=== PATIENT | female | born 1975 | race Asian ===

== ENCOUNTER 2019-09-29 12:20 | Emergency (ER) | payer OTHER, SELFPAY ==
[2019-09-29 12:43] VITALS: BP 131/85; PULSE 101; RESP 20; TEMP 37; O2SAT 98; BMI 22.8
--- NOTE | 2019-09-29 13:04 | USCV_ITS ---
Anita Bedoya Age: 44 Gender: F : 1975 Exam Date: 09/29/2019 13:04 Ordering Phys: Ana Yu Technologist: Veda Woodruff [place] [facility] [place]: Calf pain HISTORY: Left lower extremity pain. PROCEDURES: Comparison: none available. Venous duplex imaging was performed in only the left lower extremity. The following venous structures were evaluated: common femoral vein, profunda vein, proximal portion of the greater saphenous vein, superficial femoral vein, and the popliteal vein. In addition, the posterior tibial and peroneal trunk were evaluated. Serial compression, augmentation maneuvers, and spectral Doppler flow evaluation were performed. FINDINGS: No evidence of DVT seen in any vessel visualized at this time. CONCLUSIONS Negative left lower extremity venous Doppler ultrasound. Negative for Webb's cyst. Dr. Marian Whitehead MD (Electronically Signed) Final Date: 29 September 2019 13:36 S
--- NOTE | 2019-09-29 14:11 | PC.NURSE ---
Report recd from DUNG Lopez.
[2019-09-29 14:26] VITALS: BP 138/90; PULSE 90; RESP 14; TEMP 36.8; O2SAT 100
--- NOTE | 2019-09-29 14:49 | ED_ITS ---
HPI - Extremity Problem General: Chief complaint: Extremity Problem,Nontraumatic Stated complaint: LEFT LEG PAIN Time Seen by Provider: 09/29/19 12:53 Source: patient Mode of arrival: ambulatory Limitations: no limitations History of Present Illness: HPI Narrative: Patient is a 44-year-old female who presents to ED today with complaints of left lower extremity pain that began y esterday while seated at work; patient states pain seems to be worse with ambulation and palpation; she has not noticed any redness, swelling, numbness, tingling, temperature changes to the extremity; reports pain seems to be in the posterior aspect of her knee and radiating down into her calf Complaint: extremity pain Onset (ago): day(s) (yesterday ) Pain Consistency: constant Location: left Radiation: distal Relieving factors: immobilization Exacerbating factors: range of motion, weight bearing and walking Associated symptoms: Reports no associated symptoms; Deny chest pain or fever(s) Review of Systems Const: Denies: fever or chills Card: Denies: chest pain, palpitations, irregular heart rhythm, edema, lightheadedness, syncope or pre-syncope Resp: Denies: shortness of breath, pain on inspiration or coughing up blood Musc: Reports: extremity pain and joint pain; Denies: neck pain, back pain, extremity swelling, joint swelling, redness, joint warmth or muscle cramps Neuro: Denies: numbness in extremities, weakness in extremities or changes in sensation PFSH ED PFSH: Statuses (acute, chronic, etc) shown below reflect problem list status as previously entered and may not be historically accurate Social History Smoking and tobacco status: current every day smoker Female Reproductive History: Date of last menstrual period: 09/05/19 Physical Exam Const: COMMON NORMALS: no apparent distress, average body habitus, oriented x3, no limitations, healthy appearing, alert and well nourished Resp: COMMON NORMALS: normal respiratory effort and clear to auscultation bilaterally AUSCULTATION: clear to auscultation bilaterally Cardio: COMMON NORMALS: regular rate and regular rhythm RATE: regular rate RHYTHM: regular rhythm Extremity: OTHER: pt has pain to palpation of L posterior/lateral knee; pain in calf with foot flexion Neuro: COMMON NORMALS: oriented x3 SENSORIUM/ORIENTATION: Yes alert Skin: COMMON NORMALS: no rashes or lesions noted NARRATIVE SKIN EXAM: no redness, warmth, rash/lesions noted to LE GENERAL SKIN EXAM: no rashes or lesions noted Course Vital Signs: Vital signs: Vital Signs Temperature 98.3 F 09/29/19 14:26 Pulse Rate 90 09/29/19 14:26 Respiratory Rate 14 09/29/19 14:26 Blood Pressure 138/90 09/29/19 14:26 Pulse Oximetry 100 09/29/19 14:26 MDM - Extremity (Nontraumatic) Imaging Data^: US: Radiologist's impression: [address] [place] [address] Ultrasound Report Signed Patient: Hakeem Bedoya #: [id number] : 1975Acct#:[id number] Age/Sex: 44 / FADM Date: 09/29/19 [facility] Attending Dr: Ordering Provider/Ordering MD: Ana Yu Date of Service: 09/29/19 Procedure(s): CV venous duplex [facility] [id number] Accession Number(s): [id number] Report Number: [id number] Anita Bedoya Age: 44 Gender: F : 1975 Exam Date: 09/29/2019 13:04 Ordering Phys: Ana Yu Technologist: Veda Woodruff Exam Location: [facility] [place] Indication: Calf pain HISTORY: Left lower extremity pain. PROCEDURES: Comparison: none available. Venous duplex imaging was performed in only the left lower extremity. The following venous structures were evaluated: common femoral vein, profunda vein, proximal portion of the greater saphenous vein, superficial femoral vein, and the popliteal vein. In addition, the posterior tibial and peroneal trunk were evaluated. Serial compression, augmentation maneuvers, and spectral Doppler flow evaluation were performed. FINDINGS: No evidence of DVT seen in any vessel visualized at this time. CONCLUSIONS Negative left lower extremity venous Doppler ultrasound. Negative for Webb's cyst. Dr. Marian Whitehead MD (Electronically Signed) Final Date: 29 September 2019 13:36 S Discharge Plan Discharge Patient Disposition: Home, Self-Care Clinical Impression: Acute pain of left knee Condition: Stable Prescriptions: No Action venlafaxine RF: 0 sumatriptan [id number] RF: 0 Seroquel 50 mg Tablet RF: 0 Discharge Orders: Discharge Order (Routine); Ordered 09/29/19 Ordered By: nAa Yu Referrals: Adore Jones APN [Primary Care Provider] - Discharge Activity: Resume usual activity Patient Instructions: Knee Pain (ED) Activity Restrictions/Additional Instructions: Follow up with primary care in a week for continued pain. Discharge Date/Time: 09/29/19 14:27 Coding Level of Care Code ED Residential Insurance Inspector for Chg Fwd Exam Problem Focused
== END 2019-09-29 14:27 | disposition home or self-care (01) ==
PROVIDERS: Emergency Provider Physician Assistant; Family Provider Nurse Practitioner; PCP Nurse Practitioner
DX: M25.562 Pain in left knee (principal); F17.210 Nicotine dependence, cigarettes, uncomplicated
CPT/HCPCS: 93971; 99281

== ENCOUNTER 2021-06-20 08:58 | Outpatient (CLI) | payer OTHER, SELFPAY ==
[2021-06-20 10:45] LABS: Basophils # 0.1 10^3/uL (0.0-0.1); Basophils % 0.7 %; Eosinophils # 0.4 10^3/uL (0.0-0.8); Eosinophils % 3.1 %; Hematocrit 46.1 % (37.0-47.0); Hemoglobin 14.9 g/dL (11.5-15.3); Lymphocytes # 3.4 10^3/uL (0.8-4.8); Lymphocytes % 24.3 %; Mean Corpuscular HGB Conc 32.3 g/dL (30.0-36.0); Mean Corpuscular Volume 92.9 fl (81-99); Mean Platelet Volume 9.6 fL (7.4-10.4); Monocytes # 0.9 10^3/uL (0.2-0.9); Monocytes % 6.4 %; Neutrophils # 9.07 10^3/uL (1.8-7.7); Neutrophils % 64.8 %; Nucleated Red Blood Cells % 0 %; Platelet Count 479 10^3/cmm (130-400); Red Blood Count 4.96 10^6/uL (4.1-5.3); Red Cell Distribution Width 14.5 % (12.1-15.1)
[2021-06-20 11:27] LABS: Alanine Aminotransferase 36 U/L (0-33); Albumin Level 4.2 g/dL (3.5-5.2); Alkaline Phosphatase 82 IU/L (35-105); Anion Gap 15.2 (5-19); Aspartate Amino Transferase 21 U/L (0-32); Blood Urea Nitrogen 10 mg/dL (6-20); Calcium 9.1 mg/dL (8.5-10.5); Carbon Dioxide 22 mmol/L (22-29); Chloride 101 mmol/L (98-107); Globulin 3.4 g/dL (1.3-4.6); Glomerular Filtration Rate 90.9 mL/min (90-130); Glucose 96 mg/dL (65-115); Lactate Dehydrogenase 153 U/L (135-214); Osmolality Calculated 277 mOsm/kg (285-295); Potassium 4.2 mmol/L (3.5-5.1); Sodium 134 mmol/L (136-145); Thyroid Stimulating Hormone 1.81 uIU/mL (0.27-4.20); Total Bilirubin 0.3 mg/dL (0.15-1.2); Total Protein 7.6 g/dL (6.6-8.7); Vitamin B12 249 pg/mL (232-1245)
[2021-06-20 15:04] LABS: Slide Review Slide Review Perform
[2021-06-20 15:08] LABS: LAB Peripheral Smear Sent for Review
--- NOTE | 2021-06-21 08:46 | ONC CON_ITS ---
Dr. Jones New Patient Note Patient: Anita Varghese Unit #: [id number]: 1975 Dicatated By: Esteban Jones M.D.Date of Visit: Jun 20, 2021 Onc MED New Patient/Consult Referring Physician: Kae Colunga Chief Complaint: Leukocytosis. History of Present Illness: This is a 46-year-old woman with mild but persistent leukocytosis. This patient has a history of major depression. She also has chronic fatigue and she has a history of chronic migraine. She has been seeing Adore Jones for primary care. She has had a persistent leukocytosis dating back to at least January 2021 when her CBC showed a white blood cell count mildly elevated at 15,100. The differential at that time included 69% segs, 1% bands, 24% lymphocytes, 3% monocytes, 2% eosinophils, and 1% basophils. The hemoglobin was normal at 14.0 g with hematocrit 42%, and the red cell indices were normal. Platelet count was borderline high at 432,000. Similar findings were noted on a CBC from 03/21/2021 with white blood cell count 17,700, hemoglobin 13.6 g, and platelet count 400,000 and another CBC from 05/08/2021 with white blood cell count 17,800, hemoglobin 14.6 g, and platelet count 465,000. On review of her records in [facility], she had a prior CBC from 04/18/2019 which showed a similarly elevated white blood cell count at 17,700 with hemoglobin 13.3 g and platelet count slightly elevated at 436,000. Her other laboratories from January included comprehensive metabolic profile which was unremarkable except for slightly low albumin of 3.3 g/dL. Her TSH was slightly low at 0.676 ???IU/mL. She indicates that she had become profoundly lethargic in association with her depression, to the point that she was not working or involving herself in any other activities. Lately, though, she has been feeling a little better and she is starting to work again, though she still feels tired. Her ECOG score is 1. Her appetite is iffy . She had a significant weight gain in the range of 30 pounds over the past couple of years, but her weight recently has been stable. She has not had fever or night sweats. She had been having some hot flashes, but not recently. She has not had sinus symptoms, sore mouth, or sore throat. She has occasionally had pressure in her chest at night. She does not complain of shortness of breath or cough. She sometimes has nausea. She rarely has acid reflux. Bowel and bladder function have been okay, and her menstrual periods have been regular. She has occasional low back pain. She has migraine headaches which come and go. Lately they have not been as bad as they had been previously. She sometimes has dizziness. She has carpal tunnel symptoms bilaterally, which she has been managing with a brace at night. She has no other focal neurologic symptoms. Past Medical History: Her medical history includes anxiety, chronic fatigue, chronic insomnia, chronic migraine, depression, lumbar back pain, and panic attacks. Past Surgical History: Her only surgery was a tubal ligation. Medications: Abilify 1 Tablet (of 15 mg) Oral daily, ALPRAZolam 1 Tablet (of 0.5 mg) Oral b.i.d., buPROPion HCl ER (XL) 1 Tablet (of 300 mg) Tablet SR 24 HR Oral daily, Daily Vitamins 1 Tablet Oral daily, Propranolol HCl 1 Tablet (of 60 mg) Oral daily, traZODone HCl 1 Tablet (of 100 mg) Oral at bedtime, Venlafaxine HCl ER 1 Tablet (of 225 mg) Tablet SR 24 HR Oral daily Allergies: Penicillins Social History: Ms. Varghese is . She is employed by [employer] and she works at home. She has a history of smoking 1 pack of cigarettes daily for at least 20 years. She has just occasional alcohol use. Family History: Both parents are living, father at age 83 and mother at age 84. He has hypertension. She has hypertension and diabetes, and she also has been treated for breast cancer. She has 4 brothers, one of whom has hypertension. Review Of Symptoms: Constitutional - She has had significant fatigue, though it is starting to improve somewhat. Her appetite is iffy. She had significant weight gain over the past couple of years, in the range of 30 pounds. Her weight recently has been stable. She has not had fever or night sweats. She sometimes has hot flashes, but not recently. ECOG score is 1, Eyes - No change in vision, ENMT - No hearing loss or tinnitus. No sinus congestion/drainage. No mouth sores. No sore throat or difficulty swallowing, Hematologic/Lymphatic - No abnormal bruising or bleeding, Respiratory - No shortness of breath. No cough. No pleuritic pain or hemoptysis, Cardiovascular - She occasionally has pressure in her chest. It usually at night No palpitations, Gastrointestinal - She sometimes has nausea. She rarely has acid reflux. No diarrhea or constipation. No blood in the stool or black stools, Genitourinary (F) - No dysuria or hematuria. No urinary frequency. No urgency or incontinence. Her menstrual periods are regular, Musculoskeletal - She occasionally has low back pain, Integumentary - No skin rash or other skin changes, Neurologic - She has chronic migraine, though recently not as severe as it has been previously. She sometimes has dizziness. She has carpal tunnel symptoms bilaterally. She has no other focal neurologic symptoms, Psychiatric - She has history of major depression. She also has anxiety and panic attacks, and she has chronic insomnia. Vital Signs: Performed on Jun 20, 2021 09:41: 3, 0, 28.84, 1.60 sq.m, 59 in, 99 %, 90 /min, 18 /min, 133/87 mm(hg), 97.2 F (LOW), and 142.8 lbs (HIGH). Physical Examination: Constitutional - She appears to be in good general health, Eyes - Sclerae nonicteric. Conjunctivae clear, ENMT - No lesions noted in the oral cavity, Neck - No mass or thyromegaly, Hematologic/Lymphatic - No cervical, clavicular, or axillary adenopathy, Respiratory - Lungs are clear with good air movement bilaterally, Cardiovascular - Heart rhythm is regular. There is no murmur, gallop, or rub noted, Abdomen - Soft and non-tender. Liver and spleen are not enlarged. There is no abdominal mass or ascites noted and there is no inguinal adenopathy, Back/Spine - There is some mild tenderness in the lower back/lumbar area, Extremities - No edema. Pedal pulses are palpable bilaterally, Integumentary - No rashes. No suspicious skin lesions noted, Neurologic - No focal neurologic deficits noted. Problem List: 1. Mild but persistent leukocytosis and borderline high platelet count. Etiology is uncertain, but the findings appear today back to at least March 2019. 2. She has major depression. 3. History of anxiety and panic attacks. 4. Chronic fatigue. 5. Chronic migraine. Problems Addressed with this Encounter and Plan: Patient with mild but persistent leukocytosis and borderline high platelet count. Etiology is uncertain. However, as it dates back to at least March 2019 and it has not shown significant progression during that interval, it appears to be most likely reactive. As there is no obvious underlying cause for it, a myeloproliferative disorder still needs to be excluded. At this point I will repeat her CBC and CMP along with sed rate, CRP level, LDH level, and B12 level. I will check BCR/abl by FISH, and I will review the blood smear. In addition, I will repeat the TSH level, as it was slightly low. She will have further evaluation as indicated. Signed By: Esteban Jones M.D. <<Signature on File>>
[2021-06-21 14:08] LABS: Erythrocyte Sedimentation Rate 19 mm/hr (0-15)
[2021-06-23 22:48] LABS: P190 BCR ALB1 NOT DETECTED; P210 BCR ALB1 NOT DETECTED; Prior Results NG; Source BLOOD
== END 2021-06-20 08:59 | disposition home or self-care (01) ==
LOC: ONCMED 09:04
PROVIDERS: PCP Nurse Practitioner; Visit Provider Internal Medicine Medical Oncology
DX: D72.829 Elevated white blood cell count, unspecified (principal); F32.9 Major depressive disorder, single episode, unspecified; F41.9 Anxiety disorder, unspecified; F41.0 Panic disorder [episodic paroxysmal anxiety]; R53.82 Chronic fatigue, unspecified; G43.919 Migraine, unspecified, intractable, without status migrainosus; Z79.899 Other long term (current) drug therapy
CPT/HCPCS: 36415; 80053; 81206; 82607; 83615; 84443; 85025; 85651; 86141; 99205

== ENCOUNTER 2021-09-27 11:23 | Outpatient (CLI) | payer OTHER, SELFPAY ==
[2021-09-27 11:54] LABS: Basophils # 0.1 10^3/uL (0.0-0.1); Basophils % 0.7 %; Eosinophils # 0.6 10^3/uL (0.0-0.8); Eosinophils % 4.1 %; Hematocrit 44.4 % (37.0-47.0); Hemoglobin 14.7 g/dL (11.5-15.3); Lymphocytes # 3.3 10^3/uL (0.8-4.8); Lymphocytes % 22.1 %; Mean Corpuscular HGB Conc 33.1 g/dL (30.0-36.0); Mean Corpuscular Hemoglobin 30.3 pg (28.0-34.0); Mean Corpuscular Volume 91.5 fl (81-99); Mean Platelet Volume 9.1 fL (7.4-10.4); Monocytes # 0.9 10^3/uL (0.2-0.9); Monocytes % 6.2 %; Neutrophils # 10.05 10^3/uL (1.8-7.7); Neutrophils % 66.4 %; Nucleated Red Blood Cells % 0 %; Platelet Count 483 10^3/cmm (130-400); Red Blood Count 4.85 10^6/uL (4.1-5.3); Red Cell Distribution Width 14.5 % (12.1-15.1); White Blood Count 15.1 10^3/uL (4.0-10.0)
[2021-09-27 12:09] LABS: Erythrocyte Sedimentation Rate 41 mm/hr (0-15)
[2021-09-27 12:24] LABS: Alanine Aminotransferase 121 U/L (0-33); Alkaline Phosphatase 146 IU/L (35-105); Blood Urea Nitrogen 10 mg/dL (6-20); Calcium 9.1 mg/dL (8.5-10.5); Carbon Dioxide 19 mmol/L (22-29); Chloride 102 mmol/L (98-107); Globulin 3.1 g/dL (1.3-4.6); Glomerular Filtration Rate 90.9 mL/min (90-130); Glucose 90 mg/dL (65-115); Osmolality Calculated 281 mOsm/kg (285-295); Sodium 136 mmol/L (136-145); Total Bilirubin 0.2 mg/dL (0.15-1.2); Total Protein 7.1 g/dL (6.6-8.7)
[2021-09-27 12:25] LABS: Anion Gap 19.6 (5-19); Potassium 4.6 mmol/L (3.5-5.1)
[2021-09-27 12:26] LABS: Aspartate Amino Transferase 95 U/L (0-32); Lactate Dehydrogenase 273 U/L (135-214)
== END 2021-09-27 11:24 | disposition home or self-care (01) ==
PROVIDERS: PCP Nurse Practitioner; Visit Provider Internal Medicine Medical Oncology
DX: D72.829 Elevated white blood cell count, unspecified (principal)
CPT/HCPCS: 36415; 80053; 83615; 85025; 85651

== ENCOUNTER 2021-10-09 12:41 | Outpatient (CLI) | payer OTHER, SELFPAY | END 2021-10-09 12:42 | disposition home or self-care (01) | LOC: ONCMED 12:43 | PROVIDERS: PCP Nurse Practitioner; Visit Provider Nurse Practitioner Family | DX: D72.829 Elevated white blood cell count, unspecified (principal); D69.1 Qualitative platelet defects; F32.9 Major depressive disorder, single episode, unspecified; F41.9 Anxiety disorder, unspecified; F41.0 Panic disorder [episodic paroxysmal anxiety]; R53.82 Chronic fatigue, unspecified; G43.809 Other migraine, not intractable, without status migrainosus; Z79.899 Other long term (current) drug therapy | CPT/HCPCS: 99214 ==

== ENCOUNTER 2022-02-27 10:28 | Oncology outpatient (recurring) (ONCR) | payer OTHER, SELFPAY ==
[2022-02-27 11:16] LABS: Basophils # 0.1 10^3/uL (0.0-0.1); Basophils % 0.7 %; Eosinophils # 0.4 10^3/uL (0.0-0.8); Eosinophils % 2.5 %; Hematocrit 44.2 % (37.0-47.0); Hemoglobin 14.9 g/dL (11.5-15.3); Lymphocytes # 3.8 10^3/uL (0.8-4.8); Lymphocytes % 21.8 %; Mean Corpuscular HGB Conc 33.7 g/dL (30.0-36.0); Mean Corpuscular Volume 92.1 fl (81-99); Mean Platelet Volume 9.4 fL (7.4-10.4); Monocytes # 0.8 10^3/uL (0.2-0.9); Monocytes % 4.8 %; Neutrophils # 12.19 10^3/uL (1.8-7.7); Neutrophils % 69.7 %; Nucleated Red Blood Cells % 0 %; Platelet Count 467 10^3/cmm (130-400); Red Cell Distribution Width 13.4 % (12.1-15.1); White Blood Count 17.5 10^3/uL (4.0-10.0)
[2022-02-27 11:35] LABS: Alanine Aminotransferase 18 U/L (0-33); Albumin Level 4.4 g/dL (3.5-5.2); Alkaline Phosphatase 81 IU/L (35-105); Anion Gap 16.8 (5-19); Aspartate Amino Transferase 18 U/L (0-32); Blood Urea Nitrogen 12 mg/dL (6-20); Calcium 9.1 mg/dL (8.5-10.5); Carbon Dioxide 21 mmol/L (22-29); Chloride 102 mmol/L (98-107); Globulin 3.5 g/dL (1.3-4.6); Glomerular Filtration Rate 77.6 mL/min (90-130); Glucose 146 mg/dL (65-115); Lactate Dehydrogenase 143 U/L (135-214); Osmolality Calculated 284 mOsm/kg (285-295); Potassium 3.8 mmol/L (3.5-5.1); Sodium 136 mmol/L (136-145); Total Bilirubin 0.2 mg/dL (0.15-1.2); Total Protein 7.9 g/dL (6.6-8.7)
== END 2022-02-27 23:59 | disposition home or self-care (01) ==
LOC: ONCMED 10:29
PROVIDERS: Nurse Practitioner Family; PCP Nurse Practitioner; Referring Provider Nurse Practitioner; Visit Provider Internal Medicine Medical Oncology
DX: D72.829 Elevated white blood cell count, unspecified (principal)
CPT/HCPCS: 80053; 83615; 85025; G0463

== ENCOUNTER 2022-09-04 12:29 | Oncology outpatient (recurring) (ONCR) | payer OTHER, SELFPAY ==
[2022-09-04 14:25] LABS: Basophils # 0.1 10^3/uL (0.0-0.1); Basophils % 0.7 %; Eosinophils # 0.3 10^3/uL (0.0-0.8); Eosinophils % 2.1 %; Hematocrit 42.5 % (37.0-47.0); Lymphocytes # 4.3 10^3/uL (0.8-4.8); Lymphocytes % 28.5 %; Mean Corpuscular HGB Conc 32.9 g/dL (30.0-36.0); Mean Corpuscular Hemoglobin 29.2 pg (28.0-34.0); Mean Corpuscular Volume 88.5 fl (81-99); Mean Platelet Volume 9.3 fL (7.4-10.4); Monocytes # 0.8 10^3/uL (0.2-0.9); Monocytes % 5.3 %; Neutrophils # 9.48 10^3/uL (1.8-7.7); Neutrophils % 62.9 %; Nucleated Red Blood Cells % 0 %; Platelet Count 477 10^3/cmm (130-400); Red Cell Distribution Width 14.7 % (12.1-15.1)
[2022-09-04 14:54] LABS: Alanine Aminotransferase 20 U/L (0-33); Albumin Level 4.3 g/dL (3.5-5.2); Alkaline Phosphatase 88 U/L (35-105); Anion Gap 15.7 (5-19); Aspartate Amino Transferase 20 U/L (0-32); Blood Urea Nitrogen 5 mg/dL (6-20); C Reactive Protein 12.2 mg/L (0.0-4.9); Calcium 8.9 mg/dL (8.5-10.5); Carbon Dioxide 24 mmol/L (22-29); Chloride 100 mmol/L (98-107); Globulin 3.4 g/dL (1.3-4.6); Glomerular Filtration Rate 90.5 mL/min (90-130); Glucose 99 mg/dL (65-115); Lactate Dehydrogenase 157 U/L (135-214); Osmolality Calculated 279 mOsm/kg (285-295); Potassium 3.7 mmol/L (3.5-5.1); Sodium 136 mmol/L (136-145); Total Bilirubin 0.3 mg/dL (0.15-1.2); Total Protein 7.7 g/dL (6.6-8.7)
[2022-09-04 15:14] LABS: LAB Peripheral Smear Sent for Review
[2022-09-09 18:24] LABS: Erythrocyte Sedimentation Rate 33 mm/hr (0-15)
[2022-09-13 21:48] LABS: CALR Exon 9 Mutation NOT DETECTED (NOT DETECTED); CSF3R Exon 14/17 Mutation NOT DETECTED (NOT DETECTED); JAK2 Exon 12 Mutation NOT DETECTED (NOT DETECTED); JAK2 V617 Block Specimen ID NG; JAK2 V617 Clinical Indication NG; JAK2 V617 Mutation NOT DETECTED (NOT DETECTED); JAK2 V617 Specimen Source BLOOD; MPL Exon 12 Mutation NOT DETECTED (NOT DETECTED)
== END 2022-09-30 23:59 | disposition home or self-care (01) ==
LOC: ONCMED 12:30
PROVIDERS: Visit Provider Internal Medicine Medical Oncology
DX: D72.829 Elevated white blood cell count, unspecified (principal); D75.1 Secondary polycythemia
CPT/HCPCS: 36415; 80053; 81219; 81270; 81339; 81403; 81479; 83615; 85025; 85651; 86140

== ENCOUNTER 2023-12-25 12:59 | Outpatient (CLI) | payer OTHER, SELFPAY ==
--- NOTE | 2023-12-25 13:45 | MR_ITS ---
WS: [id number] MRI HEAD WITHOUT CONTRAST TECHNIQUE: Sagittal T1, T2 axial, T2 axial FLAIR, axial and coronal T1 images, axial susceptibility w eighted imaging, axial diffusion weighted images, and coronal T2 images were obtained. CLINICAL INFORMATION: increase in migraine frequency and severity COMPARISON: MRI [address] 2018 FINDINGS: No evidence of restricted diffusion to suggest acute ischemia. Ventricular system and basal cisterns are patent. Normal posterior fossa. Normal vascular flow voids at the skull base. No extra-axial flui d collections. No evidence of mass or mass effect. A few small foci of T2 hyperintensity in the LEFT greater than RIGHT frontal periventricular white matter nonspecific in a patient this age but can be seen with migraine headaches. This is unchanged since 2019. Paranasal sinuses and mastoid air cells are well aerated. No hemosiderin on the susceptibility weight ed images. Temporal lobes and hippocampal formations are normal in appearance. IMPRESSION: 1. No evidence of restricted diffusion to suggest acute ischemia. 2. A few small foci of T2 hyperintensity in the LEFT frontal periventricular white matter unchanged since 2019 nonspecific in a patient this age but can be seen with migraine headaches. No other suspic ious intracranial signal abnormalities 3. No hemosiderin on susceptibly weighted images. 4. Temporal lobes and hippocampal formations are normal in appearance. 5. No other acute findings.
== END 2023-12-25 13:00 | disposition home or self-care (01) ==
LOC: RAD 13:00
PROVIDERS: PCP Family Medicine; Visit Provider Family Medicine
DX: G43.111 Migraine with aura, intractable, with status migrainosus (principal)
CPT/HCPCS: 70551

== ENCOUNTER → 2024-02-19 10:03 | Outpatient (BNVA) | payer OTHER, SELFPAY | PROVIDERS: PCP Family Medicine; Visit Provider Family Medicine | DX: Z13.6 Encounter for screening for cardiovascular disorders (principal) | CPT/HCPCS: 80053; 80061; 85025 ==

== ENCOUNTER 2024-03-11 13:30 | Outpatient (CLI) | payer OTHER, SELFPAY ==
--- NOTE | 2024-03-11 13:30 | MM_ITS ---
WS: [id number] BILATERAL 3D TOMOSYNTHESIS DIGITAL SCREENING MAMMOGRAPHY WITH CAD CLINICAL INFORMATION: screening HISTORY: Screening mammogram. No current complaints. COMPARISON: None. TECHNIQUE: Bilateral CC and MLO views. FINDINGS: The breasts are composed of heterogeneous fibroglandular density tissue, which can limit the detectio n of small underlying mass lesions. Dense nodular breast tissue upper outer breasts bilaterally. This is indeterminant and considering no comparisons recommend further evaluation with bilateral breast u ltrasound. Incidental punctate calcifications RIGHT breast. MM/[place] [id number] IMPRESSION: BI-RADS: 0-Incomplete: Need additional imaging evaluation FOLLOW UP: Need Additional Imaging Recommend bilateral breast ultrasound upper outer quadrants
== END 2024-03-11 13:31 | disposition home or self-care (01) ==
PROVIDERS: Visit Provider Family Medicine
DX: Z12.31 Encounter for screening mammogram for malignant neoplasm of breast (principal); R92.333 Mammographic heterogeneous density, bilateral breasts; R92.323 Mammographic fibroglandular density, bilateral breasts; N63.21 Unspecified lump in the left breast, upper outer quadrant; N63.11 Unspecified lump in the right breast, upper outer quadrant
CPT/HCPCS: 77063; 77067

== ENCOUNTER 2024-03-31 10:36 | Outpatient (CLI) | payer OTHER, SELFPAY ==
--- NOTE | 2024-03-31 11:30 | US_ITS ---
WS: [id number] ULTRASOUND BREAST BILATERAL TECHNIQUE: Ultrasound bilateral breast focused area of concern. CLINICAL INFORMATION: recommendation from mammogram. abnormal reading COMPARISON: 03/11/2024 FINDINGS: Ultrasound upper outer breast bilaterally. RIGHT BREAST: Incidental ductal ectasia upper outer RIGHT breast in the area of concern. No suspiciou s lesions. LEFT BREAST: Similar-appearing ductal ectasia upper outer LEFT breast in the area of concern. A few d ilated ducts with ductal debris. No suspicious findings. US/US breast BI limited* [id number] IMPRESSION: BI-RADS 2 benign Recommend return to annual screening mammography.
== END 2024-03-31 10:37 | disposition home or self-care (01) ==
LOC: RAD 10:37
DX: R92.8 Other abnormal and inconclusive findings on diagnostic imaging of breast (principal); N60.41 Mammary duct ectasia of right breast; N60.42 Mammary duct ectasia of left breast
CPT/HCPCS: 76642

== ENCOUNTER → 2024-05-06 08:32 | Outpatient (BNVA) | payer OTHER, SELFPAY | DX: Z01.419 Encounter for gynecological examination (general) (routine) without abnormal findings (principal); R87.619 Unspecified abnormal cytological findings in specimens from cervix uteri | CPT/HCPCS: 87624 ==

== ENCOUNTER → 2024-09-16 09:06 | Outpatient (BNVA) | payer OTHER, SELFPAY | DX: F41.1 Generalized anxiety disorder (principal) | CPT/HCPCS: 80053; 84439; 84443; 84481 ==

== ENCOUNTER → 2024-09-30 10:25 | Outpatient (BNVA) | payer OTHER, SELFPAY | DX: R73.09 Other abnormal glucose (principal) | CPT/HCPCS: 80053; 83036 ==

== ENCOUNTER → 2024-12-27 12:02 | Outpatient (BNVA) | payer OTHER, SELFPAY | PROVIDERS: Visit Provider Family Medicine | DX: I10 Essential (primary) hypertension (principal); R73.03 Prediabetes | CPT/HCPCS: 80053; 80061; 83036; 85025 ==

== ENCOUNTER 2025-01-11 09:20 | Outpatient (CLI) | payer OTHER, SELFPAY ==
--- NOTE | 2025-01-11 09:30 | USR_ITS ---
PROCEDURE INFORMATION: Exam: US Bilateral Noninvasive Physiologic Study of the Lower Extremity Arteries, Limited Exam date and time: 01/11/2025 9:34 AM Age: 49 years old Clinical indication: Other: Claudication; Additional info: Intermittent claudication TECHNIQUE: Imaging protocol: Bilateral Limited bilateral noninvasive physiologic studies of lower extremity arteries. COMPARISON: No relevant prior studies available. FINDINGS: Right femoral arteries: Not evaluated Right infrapopliteal arteries: Posterior tibial artery pressure is 116 mmHg. Dorsalis pedis artery pressure is 115 mmHg. Digital artery pressure is 114 mmHg. Left femoral arteries: Not evaluated Left infrapopliteal arteries: Posterior tibial artery pressure is 117 mmHg. Dorsalis pedis artery pressure is 113 mmHg. Digital artery pressure is 115 mmHg. Right Ankle-Brachial Index: 1.0 Left Ankle-Brachial Index: 1.0 US/CV ankle brachial index [id number] IMPRESSION: No evidence of stenosis or occlusion in the lower extremities.
== END 2025-01-11 09:21 | disposition home or self-care (01) ==
PROVIDERS: Visit Provider Family Medicine
DX: I73.9 Peripheral vascular disease, unspecified (principal)
CPT/HCPCS: 93922

== ENCOUNTER → 2025-01-31 13:32 | Outpatient (BNVA) | payer OTHER, SELFPAY | PROVIDERS: PCP Family Medicine; Visit Provider Family Medicine | DX: N18.31 Chronic kidney disease, stage 3a (principal) | CPT/HCPCS: 80048 ==

== ENCOUNTER → 2025-04-03 10:00 | Outpatient (BNVA) | payer OTHER, SELFPAY | PROVIDERS: PCP Family Medicine; Visit Provider Family Medicine | DX: E78.5 Hyperlipidemia, unspecified (principal) | CPT/HCPCS: 80053; 80061 ==

== ENCOUNTER → 2025-04-05 13:01 | Outpatient (BNVA) | payer OTHER, SELFPAY | PROVIDERS: PCP Family Medicine; Visit Provider Family Medicine | DX: R73.03 Prediabetes (principal) | CPT/HCPCS: 83036 ==

== ENCOUNTER 2025-04-10 08:49 | Outpatient (CLI) | payer OTHER, SELFPAY ==
--- NOTE | 2025-04-10 09:20 | MM_ITS ---
WS: [id number] SCREENING DIGITAL BREAST TOMOSYNTHESIS MAMMOGRAM WITH CAD HISTORY: screening COMPARISON: 03/11/2024 Bilateral CC and MLO with tomosynthesis and synthetic mammography submitted. Computer aided detection analyzed. Breast composition: There are scattered areas of fibroglandular density. Focal asymmetry with calcifications persists in the upper outer quadrant of the RIGHT breast at a mid to posterior depth. The asymmetry is slightly progressed since the prior study. No additional changes in the LEFT breast. No suspicious mass. MM/MM scr BI tomosynthesis [id number] IMPRESSION: BI-RADS: 0 - Incomplete: Need additional imaging evaluation. FOLLOW UP: Need Additional Imaging RIGHT breast: Spot compression views (CC and MLO). True ML. Ultrasound to follo w if abnormality persists.
== END 2025-04-10 08:50 | disposition home or self-care (01) ==
LOC: RAD 08:50
PROVIDERS: PCP Family Medicine; Visit Provider Family Medicine
DX: Z12.31 Encounter for screening mammogram for malignant neoplasm of breast (principal); R92.1 Mammographic calcification found on diagnostic imaging of breast; R92.323 Mammographic fibroglandular density, bilateral breasts; N64.89 Other specified disorders of breast
CPT/HCPCS: 77063; 77067

== ENCOUNTER 2025-04-13 06:50 | Outpatient (CLI) | payer OTHER, SELFPAY ==
--- NOTE | 2025-04-13 07:15 | US_ITS ---
WS: [id number] Complete ABDOMINAL ULTRASOUND HISTORY: decreased renal function/Abnormal LFT COMPARISON: None available. Liver: 12.9 cm in length. Normal size liver and echogenicity. No bile duct dilatation or mass. Portal Vein: Normal hepatopetal flow with monophasic waveform. Gallbladder: Normally distended gallbladder with no stones or wall thickening. CBD: 0.3 cm Pancreas: Normal size and echogenicity. Right kidney: 9.1 cm x 4.6 x 3.7 cm. Cortex:1.1 cm. Normal size and echogenicity. No hydronephrosis or mass. Left kidney: 9.3 cm x 4.0 cm x 4.8 cm. Cortex: 1.1 cm. Normal size and echogenicity. No hydronephrosis or mass. Spleen: 8.9 cm. Normal size and echogenicity. Aorta and IVC: Unremarkable abdominal aorta and IVC. US/US abdomen complete* [id number] Impression: Normal complete abdomen ultrasound.
== END 2025-04-13 06:51 | disposition home or self-care (01) ==
LOC: RAD 06:50
PROVIDERS: PCP Family Medicine; Visit Provider Family Medicine
DX: N18.31 Chronic kidney disease, stage 3a (principal); R89.9 Unspecified abnormal finding in specimens from other organs, systems and tissues
CPT/HCPCS: 76700

== ENCOUNTER 2025-05-02 09:02 | Outpatient (CLI) | payer OTHER, SELFPAY ==
--- NOTE | 2025-05-02 09:05 | US_ITS ---
WS: [id number] ADDITIONAL VIEWS RIGHT MAMMOGRAM WITH DIGITAL BREAST TOMOSYNTHESIS. RIGHT BREAST ULTRASOUND HISTORY: breast mass COMPARISON: 03/11/2024, 04/10/2025 RIGHT MAMMOGRAM: Spot compression views and true ML with digital breast tomosynthesis and SM. Breast composition: The breasts are heterogeneously dense, which may obscure small masses. Irregular, indistinct mass in the upper outer quadrant at a middle depth with increased density. There are a few associated benign-appearing calcifications. Asymmetry measures 1.3 x 0.7 x 1.1 cm. RIGHT BREAST ULTRASOUND 2-D and color Doppler imaging submitted. Ultrasound in the upper outer quadrant of the RIGHT breast is performed. There are multiple cysts noted at 10:00, 2 cm from the nipple. There is through transmission and no increased vascularity. The entire cluster measures 6 x 14 by 18 mm. This corresponds to the mammographic abnormality. US/US breast RT limited* [id number] IMPRESSION: BI-RADS: 2 - Benign FOLLOW UP: 1 Year Follow-up RIGHT breast mammographic abnormality corresponds to a cluster of cysts. No maldonado id mass. Return to annual screening mammography.
--- NOTE | 2025-05-02 09:45 | MM_ITS ---
WS: [id number] ADDITIONAL VIEWS RIGHT MAMMOGRAM WITH DIGITAL BREAST TOMOSYNTHESIS. RIGHT BREAST ULTRASOUND HISTORY: breast mass COMPARISON: 03/11/2024, 04/10/2025 RIGHT MAMMOGRAM: Spot compression views and true ML with digital breast tomosynthesis and SM. Breast composition: The breasts are heterogeneously dense, which may obscure small masses. Irregular, indistinct mass in the upper outer quadrant at a middle depth with increased density. There are a few associated benign-appearing calcifications. Asymmetry measures 1.3 x 0.7 x 1.1 cm. RIGHT BREAST ULTRASOUND 2-D and color Doppler imaging submitted. Ultrasound in the upper outer quadrant of the RIGHT breast is performed. There are multiple cysts noted at 10:00, 2 cm from the nipple. There is through transmission and no increased vascularity. The entire cluster measures 6 x 14 by 18 mm. This corresponds to the mammographic abnormality. MM/MM diag RT tomosynthesis [id number] IMPRESSION: BI-RADS: 2 - Benign FOLLOW UP: 1 Year Follow-up RIGHT breast mammographic abnormality corresponds to a cluster of cysts. No maldonado id mass. Return to annual screening mammography.
== END 2025-05-02 09:03 | disposition home or self-care (01) ==
LOC: RAD 09:02
PROVIDERS: PCP Family Medicine; Visit Provider Family Medicine
DX: N60.11 Diffuse cystic mastopathy of right breast (principal); R92.333 Mammographic heterogeneous density, bilateral breasts
CPT/HCPCS: 76642; 77061; G0279

== ENCOUNTER 2025-06-06 06:18 | Day surgery (SDC) | payer OTHER, SELFPAY ==
[2025-06-06 06:38] VITALS: BP 150/89; PULSE 119; RESP 18; TEMP 36.2; O2SAT 97
[2025-06-06 06:39] VITALS: BMI 33.5
--- NOTE | 2025-06-06 06:46 | ANES.PREANE2 ---
Pre-Anesthetic Assessment Height/Weight: Height 1.5 m Weight 75.296 kg Temp Pulse Resp BP Pulse Ox O2 Del Method 97.2 F L 119 H 18 150/89 97 Room Air 06/06/25 06:38 06/06/25 06:38 06/06/25 06:38 06/06/25 06:38 06/06/25 06:38 06/06/25 06:38 Preop Diagnosis: screening Operation Date: 06/06/25 07:30 Proposed Procedures p Colonoscopy [id number] Z12.11(Not Applicable) - Wellington Newberry MD Familial anesthetic complications: none Was Beta Zaki taken within 24 hours: N/A Was Clonidine taken within 24 hours: N/A Last intake: Intake Last Liquid Date 06/05/25 Last Liquid Time 21:00 Last Solid Date 06/04/25 Social No alcohol and No tobacco Exam alert, oriented x 3, clear to auscultation bilaterally and regular rate & rhythm Airway Submandibular: within normal limits Cervical ROM: within normal limits Mallampati: Class II Dentition: full History/ROS No significant history except as noted and No significant complaints Pulmonary None reported CV/HEM Hypertension None reported Hepatic None reported GI None reported Metabolic None reported Musc/skel None reported Neuropsych Anxiety and Depression Anesthetic Plan ASA status: 2 Anesthesia: MAC Risk of > 500 ml blood loss (7ml/kg in children): No Medications/Allergies Home Medications ?Medication ?Instructions ?Recorded ?Confirmed ?Last Taken ?Type sumatriptan succinate 100 mg See Rx Instructions PO .COMPLEX 07/26/24 06/06/25 Unknown Rx tablet (Imitrex) #10 tabs venlafaxine 150 mg 150 mg PO DAILY #60 caps 07/26/24 05/31/25 06/05/25 Rx capsule,extended release 24 hr venlafaxine 75 mg capsule,extended 75 mg PO DAILY #30 caps 07/26/24 05/31/25 06/05/25 Rx release 24 hr metformin 500 mg tablet,extended 500 mg PO DAILY #90 tabs 12/29/24 05/31/25 06/04/25 Rx release 24 hr aripiprazole 15 mg tablet 15 mg PO DAILY #90 tabs 01/12/25 05/31/25 06/05/25 Rx estradiol 0.05 mg-norethindrone 1 patch transdermal .twice a week 04/03/25 05/31/25 05/29/25 Rx 0.14 mg/24 hr semiwkly transderm #8 ea patch (CombiPatch) solifenacin 10 mg tablet (Vesicare) 10 mg PO DAILY #90 tabs 04/03/25 05/31/25 06/05/25 Rx bupropion HCl 300 mg 24 hr tablet, 300 mg PO DAILY 05/31/25 05/31/25 06/05/25 History extended release lisinopril 10 mg tablet 10 mg PO DAILY 05/31/25 05/31/25 06/04/25 History topiramate 100 mg tablet 100 mg PO DAILY 05/31/25 05/31/25 05/31/25 History Allergies Allergy/AdvReac Type Severity Reaction Status Date / Time Penicillins Allergy ALGY-Hives Verified 06/06/25 06:31 Current Medications Generic Name Dose Route Start Last Admin Trade Name Freq PRN Reason Stop Dose Admin Sodium Chloride 1,000 mls @ 15 mls/hr 06/06/25 06:25 06/06/25 06:36 Sodium Chloride 0.9% IV 06/07/25 06:24 15 mls/hr .Q24H PRN Administration COLONOSCOPY FLUIDS PFSH Anesthesia Medical History Pre-diabetes Elevated glucose level Racing heart beat Screening for cervical cancer Well woman exam with routine gynecological exam Generalized anxiety disorder Major depressive disorder, recurrent severe without psychotic features Leukocytosis Chronic insomnia Chronic fatigue History of alcohol abuse Sober since 2019 Surgical History History of tubal ligation Family History Mother Clotting disorder Cancer Breast cancer Dementia Diabetes Father Diabetes Stroke Brother Diabetes Other CAD (coronary artery disease) Hyperlipidemia Hypertension Psychiatric illness Denies family history of Chronic kidney disease (CKD) Suicide Anesthesia complication Bleeding disorder Lung disease Social History Smoking and tobacco/nicotine status: former use of tobacco/nicotine Quit status (tobacco/nicotine): has quit using Second hand smoke exposure: No Alcohol intake: never Substance/Drug Use: never Adopted: No service: No Current occupational exposures/hazards: No Female Reproductive History Date of last menstrual period: 05/29/25
[2025-06-06 06:57] LABS: OR HCG Qualitative Urine Negative (Negative)
--- NOTE | 2025-06-06 06:59 | W.PM.OPSUD ---
Surgery/Procedure H&P Update DATE OF PROCEDURE: June 06, 2025 DATE H&P PERFORMED: 05/08/25 H&P UPDATE INFORMATION: I have reviewed H&P completed within last 30 days, I have examined patient prior to procedure, No changes to prior documentation and Risks and benefits of the procedure reviewed PREOP DIAGNOSIS: screening PLANNED PROCEDURE: Operation Date: 06/06/25 07:30 Proposed Procedures p Colonoscopy [id number] Z12.11(Not Applicable) - Wellington Newberry MD
[2025-06-06 07:43] VITALS: BP 93/68; PULSE 103; RESP 20; TEMP 36.6; O2SAT 90
[2025-06-06 07:56] VITALS: BP 101/61; PULSE 99; RESP 16; O2SAT 99
[2025-06-06 08:07] VITALS: BP 114/85; PULSE 100; RESP 16; O2SAT 96
--- NOTE | 2025-06-06 08:14 | ANE.PACU2 ---
Inpatient post-anesthesia follow up: Airway intact: Yes Vital signs: Temperature 97.8 F Pulse Rate 100 Respiratory Rate 16 Blood Pressure 114/85 Pulse Oximetry 96 Oxygen Delivery Me thod Room Air Oxygen Flow Rate Fraction of Inspir ed Oxygen Hydration adequate: Yes Nausea and vomiting: No Pain level: 1 Mental status: Baseline
== END 2025-06-06 08:14 | disposition home or self-care (01) ==
PROVIDERS: Student in an Organized Health Care Education/Training Program; PCP Family Medicine; Visit Provider Student in an Organized Health Care Education/Training Program
PROC: 0DJD8ZZ Inspection of Lower Intestinal Tract, Via Natural or Artificial Opening Endoscopic (ICD-10-PCS; CPT 45378; principal; 2025-06-06 07:30)
DX: Z12.11 Encounter for screening for malignant neoplasm of colon (principal); D12.8 Benign neoplasm of rectum; I10 Essential (primary) hypertension; F41.8 Other specified anxiety disorders; F32.9 Major depressive disorder, single episode, unspecified; R73.03 Prediabetes; Z79.84 Long term (current) use of oral hypoglycemic drugs; Z87.891 Personal history of nicotine dependence; Z80.3 Family history of malignant neoplasm of breast
CPT/HCPCS: 36416; 45380; 81025; 82962; 88305; J2704; J3490; J7030; J9999